=== PATIENT | female | born 1950 | race Caucasian/White ===

== ENCOUNTER 2016-09-04 11:12 | Emergency (ER) | payer MEDICARE, BC ==
[~2016-09-04] VITALS: Ht 167.6 cm; Wt 87.0 kg
[2016-09-04 11:15] VITALS: Ht 167.6 cm; Wt 87.0 kg
[2016-09-04] MEDS ORDERED: LIDOCAINE 1% (MDV) 20 ML INJ SC ONE (12:30)
[2016-09-04] MEDS ORDERED: CEPH-443 PO (12:31)
--- NOTE | 2016-09-04 12:44 | ERD ---
ER Documentation Chief Complaint Date/Time DATE: 09/04/16 TIME: 12:41 Chief Complaint SPLINTER TO RT HAND HPI Patient is a 66-year-old female presents with a splinter in her right hand. The splinter is in the dorsum of her right hand and started just prior to arrival. She was not able to get it out when she tried to do it herself. She has had no treatment as of yet. She does have diabetes. It is slightly painful. ROS All systems reviewed and are negative except as per history of present illness. Medications Home Meds Active Scripts Cephalexin* (Keflex*) 500 Mg Capsule, 500 MG PO TID for 5 Days, #15 CAP Prov:ANNALISE BREWER PA-C 09/04/16 PMhx/Soc Positive for diabetes Hx Alcohol Use: No Hx Substance Use: No Hx Tobacco Use: No FmHx Family History: diabetes Physical Exam Vitals Vital Signs Date Time Temp Pulse Resp B/P Pulse Ox O2 Delivery O2 Flow Rate FiO2 09/04/16 11:15 98.8 84 18 175/76 99 Physical Exam Const: No acute distress Head: Atraumatic Eyes: Normal Conjunctiva ENT: Normal External Ears, Nose and Mouth. Neck: Full range of motion..~ No meningismus. Resp: Clear to auscultation bilaterally Cardio: Regular rate and rhythm, no murmurs Abd: Soft, non tender, non distended. Normal bowel sounds Skin: Small puncture wound to the dorsum of the right hand and there is a palpable 2 cm splinter underneath the skin Back: No midline or flank tenderness Ext: No cyanosis, or edema Neur: Awake and alert, full range of motion of the right hand without any signs of tendon or nerve injury Psych: Normal Mood and Affect Results 24 hrs Current Medications Medications (Trade) Dose Ordered Sig/Maite Route PRN Reason Start Time Stop Time Status Last Admin Dose Admin Lidocaine (Xylocaine 1% (Mdv) 20 ml) 20 ml ONCE ONCE SC 09/04/16 12:30 09/04/16 12:31 DC Procedures/MDM Foreign Body Removal by me: Location: Dorsum of the right hand Anesthesia: Local 1% Lidocaine Technique: Irrigated. Blunt dissection. Complications: Neurovascularly intact post procedure. An incision needed to be made to get the splinter out and therefore a suture was placed to close the wound. 48 hour wound check. Scar minimization instructions given. Patient will be discharged home. Patient can follow-up with primary doctor within 2 days for a wound check. I was able to remove the splinter in totality. A suture was placed to close the wound. The patient will need wound check in 2 days and suture removal in 7 days. Departure Diagnosis: Primary Impression: Foreign body Additional Impression: Laceration Condition: Fair Patient Instructions: Foreign Body, Soft Tissue (Removed), Laceration, Hand Referrals: [facility] YOU HAVE RECEIVED A MEDICAL SCREENING EXAM AND THE RESULTS INDICATE THAT YOU DO NOT HAVE A CONDITION THAT REQUIRES URGENT TREATMENT IN THE EMERGENCY DEPARTMENT. FURTHER EVALUATION AND TREATMENT OF YOUR CONDITION CAN WAIT UNTIL YOU ARE SEEN IN YOUR DOCTORS OFFICE WITHIN THE NEXT 1-2 DAYS. IT IS YOUR RESPONSIBILITY TO MAKE AN APPOINTMENT FOR FOLOW-UP CARE. IF YOU HAVE A PRIMARY DOCTOR --you should call your primary doctor and schedule an appointment IF YOU DO NOT HAVE A PRIMARY DOCTOR YOU CAN CALL OUR PHYSICIAN REFERRAL HOTLINE AT IF YOU CAN NOT AFFORD TO SEE A PHYSICIAN YOU CAN CHOSE FROM THE FOLLOWING [facility] [id number] [facility] [address] [facility] [facility] [address] [facility] [address] [facility] [address] [facility] [facility]. [address] Additional Instructions: Return in 48 hours for wound recheck. Return in 7-10 days for suture removal. Follow-up with your primary care physician within 1 week. Return to the emergency department immediately should you have any new or worsening symptoms, uncontrolled fevers, or other unexplained symptoms. Take all medications as directed. FOREST SPARROW MD Sep 04, 2016 12:44
== END 2016-09-04 12:51 | disposition home or self-care (01) ==
LOC: FTE 11:12
DX: S61.441A Puncture wound with foreign body of right hand, initial encounter (principal); X58.XXXA Exposure to other specified factors, initial encounter; Y92.9 Unspecified place or not applicable

== ENCOUNTER 2016-09-11 16:33 | Emergency (ER) | payer MEDICARE, BC ==
[~2016-09-11] VITALS: Ht 157.5 cm; Wt 88.5 kg
[~2016-09-11 16:33] MED LIST: CEPH-443 PO
[2016-09-11 16:36] VITALS: Ht 157.5 cm; Wt 88.5 kg
--- NOTE | 2016-09-11 18:00 | ERD ---
ER Documentation Chief Complaint Date/Time DATE: 09/11/16 TIME: 17:54 Chief Complaint RIGHT HAND SUTURE REMOVAL HPI Patient is a 66 year old female with a history of diabetes who presents to the ED with right hand suture removal. She states that sutures were placed on . States that she took her antibiotics up until today. Did not take antibiotics today. Denies fevers or chills, drainage, bleeding or swelling. No complaints. ROS All systems reviewed and are negative except as per history of present illness. Medications Home Meds Active Scripts Cephalexin* (Keflex*) 500 Mg Capsule, 500 MG PO TID for 5 Days, #15 CAP Prov:ANNALISE BREWER PA-C 09/04/16 PMhx/Soc History of Surgery: No Anesthesia Reaction: No Hx Neurological Disorder: No Hx Respiratory Disorders: No Hx Cardiac Disorders: No Hx Psychiatric Problems: No Hx Miscellaneous Medical Probl: Yes (DM) Hx Alcohol Use: No Hx Substance Use: No Hx Tobacco Use: No Smoking Status: Never smoker FmHx Family History: No coronary disease, No diabetes, No other Physical Exam Vitals Vital Signs Date Time Temp Pulse Resp B/P Pulse Ox O2 Delivery O2 Flow Rate FiO2 09/11/16 16:36 97.4 90 18 152/74 99 Physical Exam GENERAL: Well-developed, well-nourished female. Appears in no acute distress. HEART: Regular rate and rhythm. No murmurs, rubs or gallops. Extremities: Equal pulses bilaterally. No peripheral clubbing, cyanosis or edema. No unilateral leg swelling. 2 cm healing laceration on the dorsal aspect of the right hand. 2 sutures simple interrupted seen. Very minimal erythema, no swelling or warmth. No streaking. No drainage or bleeding. NEUROLOGIC: Alert and oriented. Moving all four extremities. 5/5 strength in all extremities. Normal speech. Steady gait. SKIN: Normal color. Warm and dry. No rashes or lesions. Capillary refill < 2 seconds Procedures/MDM ER COURSE: I kept the patient and/or family informed of laboratory and diagnostic imaging results throughout the emergency room course. MEDICAL DECISION MAKING: This is a 66 year old female who presents with suture removal. Vital signs were reviewed. Patient is afebrile. Patient is not hypoxic. Suture Removal by me: 2 sutures Sutures removed with tweezers and scissors without incident. Wound shows no evidence of infection, foreign body, neurologic injury, vascular injury, open joint or tendon laceration. Patient to follow up PRN. Bacitracin was placed on the wound. DISCHARGE: At this time, patient is stable for discharge and outpatient management with no new complaints during the ER course. Patient was sent home with instruction to return to the ER in 2 days for any increase in redness, warmth or fevers or drainage.. Patient will be discharged home with instructions to recheck for new or worsening symptoms such as fever, nausea, weakness, LOC and to follow up with primary care in the next 1-2 days. Patient was advised to return to the ER for any new or worsening symptoms. Plan was discussed and patient and/or family understands and agrees. Home instructions were given. Departure Diagnosis: Primary Impression: Encounter for removal of sutures Condition: Stable Patient Instructions: Suture Removal, No Complication Referrals: KIRILL JOSHI MD (PCP) Additional Instructions: Call your primary care doctor TOMORROW for an appointment during the next 1-2 days.See the doctor sooner or return here if your condition worsens before your appointment time. Return sooner if the area is red, swollen, warm and/or you develop fevers GIO WISEMAN PA-C Sep 11, 2016 18:00
== END 2016-09-11 18:03 | disposition home or self-care (01) ==
LOC: FTE 16:33
DX: Z48.02 Encounter for removal of sutures (principal); E11.9 Type 2 diabetes mellitus without complications
CPT/HCPCS: 99281